=== PATIENT | female | born 1975 | race Caucasian/White ===

== ENCOUNTER → 2016-07-27 | Outpatient (CLI) | payer BC ==
--- NOTE | 2016-07-27 16:45 | US ---
EXAMINATION TYPE: US pelvis complete transvag DATE OF EXAM: 07/27/2016 4:21 PM COMPARISON: NONE CLINICAL HISTORY: N93.9 abnormal uterine and vaginal bleeding. Last normal LMP was 06/29/2016 and sta red vaginal bleeding again 07/13/2016; uterine fibroids; on control pills to regulate menses; G 1P0 TECHNIQUE: Transvaginal (TV) and Transabdominal (TA) Date of LMP: 06/29/2016 EXAM MEASUREMENTS: Uterus: 9.2 x 7.2 x 5.0 cm Endometrial Stripe: 0.7 cm Right Ovary: 2.8 x 2.3 x 1.4 cm Left Ovary: 2.8 x 1.1 x 1.3 cm 1. Uterus: Anteverted Multiple uterine fibroids with largest measured = 3.3 x 3.0 x 2.2cm at mid myometrium and appearance is noted compressing endometrium; Multiple Nabothian cysts in CX with large st = 0.6 x 0.5 x 0.4cm. 2. Endometrium: unable to correlate thickness with abnormal vaginal bleeding; compressed mid endo by uterine fibroid 3. Right Ovary: small follicles; color flow is present 4. Left Ovary: small follicles; color flow is present 5. Bilateral Adnexa: wnl 6. Posterior cul-de-sac: wnl IMPRESSION: 1. Leiomyomatous change with limited visualization of the endometrium.
== END | disposition home or self-care (01) ==
LOC: RADUSMAIN 15:31
PROVIDERS: ATTEND Obstetrics & Gynecology
DX: D25.9 Leiomyoma of uterus, unspecified (principal)
CPT/HCPCS: 76830; 76856